=== PATIENT | male | born 1980 | race Caucasian/White ===

== ENCOUNTER 2020-09-18 10:57 | Emergency (ER) | payer OTHER, SELFPAY ==
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
[2020-09-18 11:10] VITALS: BP 123/73; PULSE 88; RESP 18; TEMP 35.9; O2SAT 98; BMI 34.8
[2020-09-18] MEDS: Cyclobenzaprine HCl 5 MG TABLET PO (12:28)
[2020-09-18] MEDS: Ketorolac Tromethamine 30 MG/ML VIAL IM (12:29)
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
== END 2020-09-18 14:40 | disposition home or self-care (01) ==
PROVIDERS: Emergency Provider Emergency Medicine Emergency Medical Services
DX: S39.012A Strain of muscle, fascia and tendon of lower back, initial encounter (principal); S29.012A Strain of muscle and tendon of back wall of thorax, initial encounter; V43.52XA Car driver injured in collision with other type car in traffic accident, initial encounter; M25.561 Pain in right knee; E11.9 Type 2 diabetes mellitus without complications; Y93.89 Activity, other specified; Y92.414 Local residential or business street as the place of occurrence of the external cause; Y99.9 Unspecified external cause status
CPT/HCPCS: 72072; 72100; 72220; 73564; 96372; 99283; 99284; J1885

== ENCOUNTER 2020-12-21 20:42 | Emergency (ER) | payer OTHER, SELFPAY ==
--- NOTE | ~2020-12-21 | XR_ITS ---
EXAMINATION: XR CHEST CLINICAL INFORMATION: Dyspnea COMPARISON: 05/17/2019 TECHNIQUE: 2 views of the chest were obtained. FINDINGS: Spinal stimulator wiring noted. The lungs are well expanded. There is no focal consolidation, edema, or effusion. No pneumothorax. The cardiomediastinal silhouette is within normal limits. No acute osseous abnormality. XR/XR chest 2V IMPRESSION: No acute pulmonary finding.
[2020-12-21 20:53] VITALS: BP 137/78; PULSE 105; RESP 28; TEMP 37.1; O2SAT 91; BMI 76.8
[2020-12-21 21:27] LABS: COVID-19 Test Negative (Negative); IDNOW Serial# 08D9AD1C
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
--- NOTE | 2020-12-21 21:52 | PC.NURSE ---
THIS RN ENTERED PTS ROOM TO ASSESS HIS RESPIRATORY STATUS. PT WAS SPEAKING IN FULL SENTENCES, TACHYPNEIC. PT BECAME AGRRESSIVE AND DISMISSIVE WHEN THIS RN BEGAN TO INQUIRE ABOUT PTS RESPIRATORY EFFORT I WANT A DIFFERENT NURSE. YOU'RE RUDE. GET OUT OF HERE . THIS RN LEFT THE ROOM, INSTRUCTING PCT TO ENTER SO THAT THE PT WOULD BE PROPERLY PLACED ON SUPERINTENDENT CIRCUS AND PULSE OXIMETER.
== END 2020-12-21 23:13 | disposition left against medical advice (07) ==
PROVIDERS: Emergency Provider Emergency Medicine
DX: R06.82 Tachypnea, not elsewhere classified (principal); Z20.822 Contact with and (suspected) exposure to COVID-19
CPT/HCPCS: 36415; 71046; 87635; 99282; 99283

== ENCOUNTER 2020-12-30 18:51 | Emergency (ER) | payer OTHER, SELFPAY ==
--- NOTE | 2020-12-30 | ECG_ITS ---
Test Reason : CHEST PAIN Blood Pressure : / mmHG Vent. Rate : 095 BPM Atrial Rate : 095 BPM P-R Int : 106 ms QRS Dur : 098 ms QT Int : 320 ms P-R-T Axes : 038 050 045 degrees QTc Int : 402 ms Sinus rhythm with short MA Otherwise normal ECG When compared with ECG of 13-MAY-2019 15:22, No significant change was found Referred By: Generic ED Physician Electronically Signed By:VALERI NGUYEN
== END 2020-12-30 21:00 | disposition left against medical advice (07) ==
PROVIDERS: Emergency Provider Emergency Medicine
DX: R07.9 Chest pain, unspecified (principal)
CPT/HCPCS: 93005; 99281